=== PATIENT | female | born 1990 | race Caucasian/White ===

== ENCOUNTER 2016-12-20 14:04 | Emergency (ER) | payer OTHER ==
[2016-12-20 14:52] VITALS: BP 123/80
--- NOTE | 2016-12-20 15:29 | UC ---
Abdominal Pain Female HPI - HPI Summary HPI Summary: Pt presents with c/o generalized abdominal pain and discomfort that began 2 days ago. Pt reports that the pain is worse epigastric. Feels like it is a big gas bubble. - History of Current Complaint Chief Complaint: UCAbdominalPain Stated Complaint: STOMACH ACHE Time Seen by Provider: 12/20/16 14:58 Hx Obtained From: Patient Hx Last Menstrual Period: 10/29/16 ?: No Onset/Duration: Gradual Onset, Lasting Days, Still Present Timing: Constant Severity Initially: Mild Severity Currently: Mild Location: Diffuse, Epigastric Radiates: Yes Radiates to: Back, Flank Character: Colicy, Cramping Aggravating Factor(s): Nothing Alleviating Factor(s): Nothing Associated Signs and Symptoms: Positive: Back Pain, Other: - abdominal discomfort Allergies/Adverse Reactions: Allergies Allergy/AdvReac Type Severity Reaction Status Date / Time Aspirin Allergy Unknown Verified 12/20/16 14:51 Reaction Details Azithromycin Allergy GI Upset Verified 12/20/16 14:51 [From Zithromax Z-Ar] Penicillins Allergy Unknown Verified 12/20/16 14:51 Reaction Details Home Medications: Home Medications Norethindrone (Contraceptive) [Kindra] 0.35 mg PO DAILY 12/20/16 [History Confirmed 12/20/16] PMH/Surg Hx/FS Hx/Imm Hx Previously Healthy: Yes - Surgical History Surgical History: None - Family History Known Family History: Positive: Cardiac Disease - Social History Lives: With Family Alcohol Use: Occasionally Substance Use Type: None Smoking Status (MU): Never Smoked Tobacco Have You Smoked in the Last Year: No Review of Systems Constitutional: Negative Skin: Negative Eyes: Negative ENT: Negative Respiratory: Negative Cardiovascular: Negative Gastrointestinal: Abdominal Pain Genitourinary: Negative Motor: Negative Neurovascular: Negative Musculoskeletal: Negative Neurological: Negative Psychological: Negative Is Patient Immunocompromised?: No All Other Systems Reviewed And Are Negative: Yes Physical Exam Triage Information Reviewed: Yes Appearance: Well-Appearing Vital Signs: Initial Vital Signs Temp 99.9 F 12/20/16 14:47 Pulse 111 12/20/16 14:47 Resp 18 12/20/16 14:47 BP 123/80 12/20/16 14:47 Pulse Ox 100 12/20/16 14:47 Eye Exam: Normal ENT Exam: Normal Dental Exam: Normal Neck exam: Normal Respiratory Exam: Normal Cardiovascular Exam: Normal Abdominal Exam: Other Abdomen Description: Positive: Other: - generalized tenderness, c/o tenderenss epigastric Bowel Sounds: Positive: Present Musculoskeletal Exam: Normal Neurological Exam: Normal Psychological Exam: Normal Skin Exam: Normal Abd Pain Female Course/Dx - Course Course Of Treatment: I discussed with the pt the need to wear loose fitting clothes and to eat bland diet and try an OTC antacid to see if abdominal pain improves. I also discussed with her the need to follow up with her PCP as soon as possible. Pt verbalized understanding and agreed to plan of care. - Differential Dx/Diagnosis Differential Diagnosis: Urinary Tract Infection Provider Diagnoses: abdominal pain. UTI Discharge - Discharge Plan Condition: Stable Disposition: HOME Prescriptions: Sulfamethox/Trimethoprim DS* [Bactrim DS 800/160 TAB*] 1 tab PO Q12H #6 tab Patient Education Materials: Urinary Tract Infection in Women (ED), Abdominal Pain (ED) Referrals: Hilda Lopez MD [Primary Care Provider] - As Soon As Possible Additional Instructions: Please follow up with your PCP as soon as possible. Please seek care immediately at your closest Emergency Room if symptoms do not improve or worsen.
--- NOTE | 2016-12-22 07:34 | UC ---
Progress - Progress Note Progress Note: Neg Culture can stop the antibiotic -- no UTI recheck prn
== END 2016-12-20 15:38 | disposition home or self-care (01) ==
LOC: UCCORT 14:04
DX: R10.13 Epigastric pain (principal)
CPT/HCPCS: 81003; 87086; 99212; G0463

== ENCOUNTER 2017-02-26 13:26 | Emergency (ER) | payer OTHER ==
[2017-02-26 15:08] VITALS: BP 132/86
--- NOTE | 2017-02-26 15:31 | UC ---
Throat Pain/Nasal Tonny HPI - HPI Summary HPI Summary: ST, sneezing, nasal congestion, cough starting 6 days ago. Denies fever or trouble breathing. Since last night has had a lot of general head pressure. No prior ENT surgery. - History of Current Complaint Chief Complaint: UCGeneralIllness Stated Complaint: SINUS COMPLAINT Time Seen by Provider: 02/26/17 15:10 Hx Obtained From: Patient Hx Last Menstrual Period: BEGINNING OF JANUARY ?: No Onset/Duration: Gradual Onset, Lasting Days Severity: Mild Cough: Nonproductive Associated Signs & Symptoms: Positive: Sinus Discomfort, Nasal Discharge. Negative: Wheezing - Allergies/Home Medications Allergies/Adverse Reactions: Allergies Allergy/AdvReac Type Severity Reaction Status Date / Time Aspirin Allergy Unknown Verified 12/20/16 14:51 Reaction Details Azithromycin Allergy GI Upset Verified 12/20/16 14:51 [From Zithromax Z-Ar] Ibuprofen Allergy Unknown Verified 02/26/17 15:08 Reaction Details Penicillins Allergy Unknown Verified 12/20/16 14:51 Reaction Details Home Medications: Home Medications Acetaminophen [Acetaminophen Extra Stren] 1,000 mg PO Q6H PRN 02/26/17 [History Confirmed 02/26/17] Pseudoephedrine-Guaifenesin [Mucinex D 60-600 mg] 1 tab PO DAILY PRN 02/26/17 [ History Confirmed 02/26/17] PMH/Surg Hx/FS Hx/Imm Hx Previously Healthy: Yes - Surgical History Surgical History: None - Family History Known Family History: Positive: Cardiac Disease - Social History Occupation: Employed Full-time Alcohol Use: Rare Substance Use Type: None Smoking Status (MU): Never Smoked Tobacco Have You Smoked in the Last Year: Yes Review of Systems Constitutional: Negative Skin: Negative Eyes: Negative ENT: Nasal Discharge Respiratory: Cough Cardiovascular: Negative Gastrointestinal: Negative Genitourinary: Negative Motor: Negative Neurovascular: Negative Musculoskeletal: Negative Neurological: Negative Psychological: Negative Is Patient Immunocompromised?: No All Other Systems Reviewed And Are Negative: Yes Physical Exam Triage Information Reviewed: Yes Appearance: Well-Appearing, No Pain Distress, Well-Nourished Vital Signs: Initial Vital Signs Temp 98 F 02/26/17 15:03 Pulse 74 02/26/17 15:03 Resp 20 02/26/17 15:03 BP 132/86 02/26/17 15:03 Pulse Ox 99 02/26/17 15:03 Vital Signs Reviewed: Yes Eye Exam: Normal Eyes: Positive: Conjunctiva Clear ENT: Positive: Hearing grossly normal, Pharynx normal, Nasal congestion, TMs normal. Negative: Nasal drainage, Hoarse voice, Dental tenderness, Sinus tenderness Dental Exam: Normal Neck exam: Normal Neck: Positive: Supple, Nontender, No Lymphadenopathy Respiratory Exam: Normal Respiratory: Positive: Chest non-tender, Lungs clear, Normal breath sounds, No respiratory distress, No accessory muscle use Cardiovascular Exam: Normal Cardiovascular: Positive: RRR, No Murmur Musculoskeletal Exam: Normal Neurological Exam: Normal Neurological: Positive: Alert Psychological Exam: Normal Skin Exam: Normal Throat Pain/Nasal Course/Dx - Differential Dx/Diagnosis Provider Diagnoses: URI, likely viral Discharge - Discharge Plan Condition: Stable Disposition: HOME Prescriptions: Benzonatate [Benzonatate 200 MG] 200 mg PO TID #30 cap Mometasone NASAL (NF) [Nasonex (NF)] 2 spray BOTH NARES DAILY #1 nasal.spr Patient Education Materials: Upper Respiratory Infection (ED) Referrals: Hilda Lopez MD [Primary Care Provider] - Additional Instructions: As we discussed, your symptoms are likely viral at this time. I do expect you to see improvement through the next week. If you develop fever or trouble breathing, please come back right away. Get lots of rest and fluids over the next 2 days.
== END 2017-02-26 15:33 | disposition home or self-care (01) ==
LOC: UCCORT 13:26
DX: J06.9 Acute upper respiratory infection, unspecified (principal); Z88.6 Allergy status to analgesic agent; Z88.1 Allergy status to other antibiotic agents; Z88.0 Allergy status to penicillin
CPT/HCPCS: 99212; G0463